=== PATIENT | male | born 2000 | race Caucasian/White ===

== ENCOUNTER 2019-03-11 18:58 | Emergency (ER) | payer MEDICAID ==
[~2019-03-11] VITALS: Ht 172.7 cm; Wt 59.0 kg
[2019-03-11] MEDS ORDERED: acetaminophen 325mg tablet PO ONE (19:05)
[2019-03-11 20:30] VITALS: BP 118/68
[2019-03-11] MEDS ORDERED: ibuprofen tablet 400 MG TABLET PO ONE (20:40)
== END 2019-03-11 21:14 | disposition home or self-care (01) ==
LOC: ER 18:59
DX: J10.1 Influenza due to other identified influenza virus with other respiratory manifestations (principal); G89.29 Other chronic pain; F17.200 Nicotine dependence, unspecified, uncomplicated
CPT/HCPCS: 87502; 87503; 99283

== ENCOUNTER 2019-05-11 06:39 | Emergency (ER) | payer MEDICAID ==
[~2019-05-11] VITALS: Ht 172.7 cm; Wt 57.5 kg
[2019-05-11 06:41] VITALS: BP 125/81
[2019-05-11] MEDS ORDERED: sulfamethoxazole/trimethoprim DS (800/160mg) tablet PO ONE (08:35)
[2019-05-11] MEDS ORDERED: SULF1TAB49 PO (08:37)
== END 2019-05-11 08:54 | disposition home or self-care (01) ==
LOC: ER 06:40
DX: L03.112 Cellulitis of left axilla (principal); F17.299 Nicotine dependence, other tobacco product, with unspecified nicotine-induced disorders
CPT/HCPCS: 99283; 99406

== ENCOUNTER 2019-09-13 20:35 | Emergency (ER) | payer MEDICAID ==
[~2019-09-13] VITALS: Ht 165.1 cm; Wt 59.1 kg
[2019-09-13 21:05] VITALS: BP 105/93
== END 2019-09-13 23:29 | disposition home or self-care (01) ==
LOC: ER 20:36
DX: S00.11XA Contusion of right eyelid and periocular area, initial encounter (principal); S00.12XA Contusion of left eyelid and periocular area, initial encounter; S20.211A Contusion of right front wall of thorax, initial encounter; F12.90 Cannabis use, unspecified, uncomplicated; R07.89 Other chest pain; Z72.89 Other problems related to lifestyle; W50.1XXA Accidental kick by another person, initial encounter; Y93.89 Activity, other specified; Y92.89 Other specified places as the place of occurrence of the external cause; Y99.8 Other external cause status
CPT/HCPCS: 70450; 70486; 71101; 99285